=== PATIENT | female | born 2000 | race Caucasian/White ===

== ENCOUNTER 2022-02-26 17:03 | Emergency (ER) | payer OTHER ==
[~2022-02-26] VITALS: Ht 162.6 cm; Wt 88.6 kg
[2022-02-26 17:04] VITALS: BP 144/81
[2022-02-26 20:12] LABS: BASO % 0.5 % (0.0-1.0); EOS # 0.1 10^3/uL (0.0-0.5); EOS % 1.7 % (0.0-3.0); HEMATOCRIT 39.9 % (36.0-47.0); HEMOGLOBIN 13.3 g/dl (12.0-15.5); LYMPH # 2.3 10^3/uL (1.5-5.0); LYMPH % 28.3 % (24.0-44.0); MEAN CORPUSCULAR HEMOGLOBIN 31.7 pg (27.0-33.0); MEAN CORPUSCULAR HGB CONC 33.3 g/dl (32.0-36.5); MEAN CORPUSCULAR VOLUME 95.2 fl (80.0-96.0); MONO # 0.6 10^3/uL (0.0-0.8); MONO % 7.4 % (2.0-8.0); NEUTROPHILS % 61.9 % (36.0-66.0); PLATELET COUNT, AUTOMATED 336 10^3/uL (150-450); RED BLOOD COUNT 4.19 10^6/uL (4.00-5.40); WHITE BLOOD COUNT 8.1 10^3/uL (4.0-10.0)
[2022-02-26 20:35] LABS: LIPASE 38 U/L (12-53)
[2022-02-26 20:36] LABS: AMYLASE 75 U/L (30-118)
[2022-02-26 20:37] LABS: BILIRUBIN,DIRECT < 0.1 MG/DL (<0.4)
[2022-02-26 20:40] LABS: HCG, SERUM QUALITATIVE NEGATIVE (NEGATIVE)
[2022-02-26 20:41] LABS: ALBUMIN 3.7 G/DL (3.2-5.2); ALKALINE PHOSPHATASE 57 U/L (46-116); ALT/SGPT 21 U/L (7.0-40); AST/SGOT 33 U/L (<34); BILIRUBIN,TOTAL 0.4 MG/DL (0.3-1.2); BLOOD UREA NITROGEN 12 MG/DL (9-23); CALCIUM LEVEL 9.9 MG/DL (8.5-10.1); CARBON DIOXIDE LEVEL 24 MMOL/L (20-31); CHLORIDE LEVEL 106 MMOL/L (98-107); CREATININE FOR GFR 0.81 MG/DL (0.55-1.30); GLOMERULAR FILTRATION RATE > 60.0 (>60); GLUCOSE, FASTING 87 MG/DL (60-100); POTASSIUM SERUM 4.8 MMOL/L (3.5-5.1); SODIUM LEVEL 140 MMOL/L (136-145); TOTAL PROTEIN 7.5 G/DL (5.7-8.2)
[2022-02-26] MEDS ORDERED: ISOVUE-370 76% 100ML VIAL As Ordered ONE (21:03)
== END 2022-02-26 22:16 | disposition home or self-care (01) ==
LOC: M ED 17:03
DX: M54.50 Low back pain, unspecified (principal); N89.8 Other specified noninflammatory disorders of vagina; F17.290 Nicotine dependence, other tobacco product, uncomplicated; Z82.49 Family history of ischemic heart disease and other diseases of the circulatory system

== ENCOUNTER 2022-04-04 20:10 | Emergency (ER) | payer OTHER ==
[~2022-04-04] VITALS: Ht 162.6 cm; Wt 89.2 kg
[2022-04-04 20:12] VITALS: BP 138/78
== END 2022-04-05 01:34 | disposition left against medical advice (07) ==
LOC: M ED 20:10
DX: Z53.21 Procedure and treatment not carried out due to patient leaving prior to being seen by health care provider (principal)

== ENCOUNTER → 2022-04-19 | Outpatient (CLI) | payer OTHER, MEDICAID ==
[2022-04-19 13:56] LABS: HEMATOCRIT 37.6 % (36.0-47.0); HEMOGLOBIN 12.4 g/dl (12.0-15.5); MEAN CORPUSCULAR VOLUME 97.2 fl (80.0-96.0); PLATELET COUNT, AUTOMATED 284 10^3/uL (150-450); RED BLOOD COUNT 3.87 10^6/uL (4.00-5.40); WHITE BLOOD COUNT 7.9 10^3/uL (4.0-10.0)
[2022-04-19 14:49] LABS: HIV 1&2 SCREEN CENTAUR NEGATIVE (NEGATIVE)
[2022-04-19 14:57] LABS: HEPATITIS C VIRUS ABY INDEX 0.1 INDEX (<0.8)
[2022-04-19 15:51] LABS: GC DNA AMPLIFICATION NEGATIVE (NEGATIVE)
== END ==
LOC: M PLALAB 08:34
PROVIDERS: ATTEND Advanced Practice Midwife
DX: Z36.9 Encounter for antenatal screening, unspecified (principal)

== ENCOUNTER → 2022-05-23 | Outpatient (CLI) | payer OTHER | LOC: M PLALAB 10:33 | PROVIDERS: ATTEND Advanced Practice Midwife | DX: Z34.80 Encounter for supervision of other normal pregnancy, unspecified trimester (principal) ==

== ENCOUNTER → 2022-07-22 | Outpatient (CLI) | payer MEDICARE, OTHER | LOC: M WHC 09:17 | PROVIDERS: ATTEND Obstetrics & Gynecology | DX: Z34.92 Encounter for supervision of normal pregnancy, unspecified, second trimester (principal); Z3A.20 20 weeks gestation of pregnancy ==

== ENCOUNTER → 2022-08-23 | Outpatient (CLI) | payer OTHER ==
[2022-08-23 15:15] LABS: HEMATOCRIT 34.9 % (36.0-47.0); HEMOGLOBIN 11.6 g/dl (12.0-15.5); MEAN CORPUSCULAR HEMOGLOBIN 33.1 pg (27.0-33.0); MEAN CORPUSCULAR HGB CONC 33.2 g/dl (32.0-36.5); MEAN CORPUSCULAR VOLUME 99.7 fl (80.0-96.0); PLATELET COUNT, AUTOMATED 260 10^3/uL (150-450); WHITE BLOOD COUNT 12.7 10^3/uL (4.0-10.0)
[2022-08-23 16:49] LABS: GC DNA AMPLIFICATION NEGATIVE (NEGATIVE)
== END ==
LOC: M PLALAB 09:26
PROVIDERS: ATTEND Advanced Practice Midwife
DX: Z34.02 Encounter for supervision of normal first pregnancy, second trimester (principal)
CPT/HCPCS: 36415; 82950; 85027; 86850; 86900; 86901; 87810; 87850; J2790

== ENCOUNTER → 2022-09-04 | Outpatient (CLI) | payer OTHER | LOC: M RAD 07:00 | PROVIDERS: ATTEND Advanced Practice Midwife | DX: Z34.02 Encounter for supervision of normal first pregnancy, second trimester (principal) ==

== ENCOUNTER 2022-09-18 13:43 | Outpatient (CLI) | payer OTHER ==
[~2022-09-18] VITALS: Ht 162.6 cm; Wt 102.0 kg
[2022-09-18] MEDS ORDERED: PRENTAB9 PO (13:59)
== END 2022-09-18 15:20 | disposition home or self-care (01) ==
LOC: M LDO 13:43
PROVIDERS: ATTEND Advanced Practice Midwife
DX: O26.892 Other specified pregnancy related conditions, second trimester (principal); R10.30 Lower abdominal pain, unspecified; R10.2 Pelvic and perineal pain; O21.8 Other vomiting complicating pregnancy; Z3A.29 29 weeks gestation of pregnancy
CPT/HCPCS: 59025; G0463

== ENCOUNTER → 2022-11-06 | Outpatient (REF) | payer OTHER ==
[~2022-11-06] MED LIST: PRENTAB9 PO
== END ==
LOC: M SFHCWAGY 16:54
PROVIDERS: ATTEND Obstetrics & Gynecology
DX: R82.90 Unspecified abnormal findings in urine (principal)

== ENCOUNTER 2022-11-13 11:35 | Outpatient (CLI) | payer OTHER ==
[~2022-11-13] VITALS: Ht 162.6 cm; Wt 112.0 kg
[2022-11-13] MEDS ORDERED: ACET-897 PO (11:46)
[2022-11-13] MEDS ORDERED: TUMS750C5 PO (11:46)
[2022-11-13 11:48] VITALS: BP 135/81
[2022-11-13] MEDS ORDERED: LACTATED RINGER'S 1000 ML IV ONE (12:00)
[2022-11-13] MEDS ORDERED: ONDANSETRON 4MG 2ML VIAL IV ONE (12:00)
[2022-11-13] MEDS ORDERED: HOME MED LIST COMPLETE! XX SCH (12:20)
[2022-11-13 13:00] LABS: APPEARANCE, URINE HAZY (CLEAR); BACTERIA, URINE AUTO 1+ (NEGATIVE); BILIRUBIN, URINE AUTO NEGATIVE (NEGATIVE); BLOOD, URINE BLOOD NEGATIVE (NEGATIVE); COLOR, URINE STRAW (YELLOW); GLUCOSE, URINE (UA) AUTO NEGATIVE (NEGATIVE); KETONE, URINE AUTO NEGATIVE (NEGATIVE); LEUKOCYTE ESTERASE, URINE AUTO NEGATIVE (NEGATIVE); NITRITE, URINE AUTO NEGATIVE (NEGATIVE); PROTEIN, URINE AUTO NEGATIVE (NEGATIVE); RBC, URINE AUTO 1 /HPF (0-3); SPECIFIC GRAVITY URINE AUTO 1.003 (1.002-1.035); SQUAMOUS EPITHELIAL CELL UR AU 4 /HPF (0-6); UROBILINOGEN, URINE AUTO 0.2 mg/dL (0.0-2.0); WBC, URINE AUTO 1 /HPF (0-3)
[2022-11-13 13:36] VITALS: BP 122/72
[2022-11-13] MEDS ORDERED: ONDA4TAB6 PO (14:57)
== END 2022-11-13 15:00 | disposition home or self-care (01) ==
LOC: M LDO 11:35
PROVIDERS: ATTEND Advanced Practice Midwife
DX: O36.8130 Decreased fetal movements, third trimester, not applicable or unspecified (principal); O21.8 Other vomiting complicating pregnancy; Z91.013 Allergy to seafood; Z3A.37 37 weeks gestation of pregnancy
CPT/HCPCS: 59025; 81001; G0463; J2405

== ENCOUNTER 2023-01-29 14:02 | Emergency (ER) | payer OTHER, MEDICAID ==
[~2023-01-29] VITALS: Ht 162.6 cm; Wt 97.7 kg
[~2023-01-29 14:02] MED LIST changes: +ACET-897 PO; +AMOX875T PO; +ONDA4TAB6 PO; +TUMS750C5 PO
[2023-01-29 14:06] VITALS: BP 120/57; TEMP 97.4; O2SAT 98
== END 2023-01-29 16:20 | disposition left against medical advice (07) ==
LOC: M ED 14:02
DX: Z53.21 Procedure and treatment not carried out due to patient leaving prior to being seen by health care provider (principal)

== ENCOUNTER → 2023-06-16 | Outpatient (REF) | payer MEDICARE, MEDICAID | LOC: M PLALAB 14:51 | PROVIDERS: ATTEND Advanced Practice Midwife | DX: Z12.4 Encounter for screening for malignant neoplasm of cervix (principal) ==

== ENCOUNTER → 2024-10-26 | Outpatient (REF) | payer BC ==
[~2024-10-26] MED LIST changes: +ONDA-282 PO; -ONDA4TAB6 PO
[2024-10-28 14:19] LABS: HPV APTIMA Not Detected (Not Detected)
== END ==
LOC: M SFHCWAGY 15:23
PROVIDERS: ATTEND Advanced Practice Midwife
DX: Z12.4 Encounter for screening for malignant neoplasm of cervix (principal); R87.610 Atypical squamous cells of undetermined significance on cytologic smear of cervix (ASC-US)
CPT/HCPCS: 87624; G0123

== ENCOUNTER → 2024-10-27 | Outpatient (CLI) | payer BC ==
[2024-10-27 10:53] LABS: PROLACTIN 7.98 NG/ML
[2024-10-27 10:54] LABS: FREE T4 1.12 NG/DL (0.89-1.76)
[2024-10-28 08:48] LABS: DEHYDROEPIANDROSTERONE SULFATE 177.0 mcg/dL (14-349)
[2024-10-29 11:48] LABS: INSULIN LEVEL 12.5 uIU/mL (<=18.4)
[2024-11-01 18:08] LABS: TESTOSTERONE FREE (DIRECT) 4.2 pg/mL (0.1-6.4); TESTOSTERONE TOTAL FOR T&D 29.0 ng/dL (2-45)
== END ==
LOC: M PLALAB 08:13
PROVIDERS: ATTEND Advanced Practice Midwife
DX: L68.0 Hirsutism (principal)

== ENCOUNTER 2025-01-01 20:29 | Emergency (ER) | payer BC ==
[~2025-01-01] VITALS: Ht 162.6 cm; Wt 96.7 kg
[2025-01-01 20:34] VITALS: TEMP 98.3
[2025-01-01] MEDS: NS (Normal Saline) 0.9% 1,000 ML IV ONE (21:51)
[2025-01-01] MEDS: ONDANSETRON 4MG 2ML VIAL IV ONE (21:51)
[2025-01-01 23:15] VITALS: BP 110/68; O2SAT 100
== END 2025-01-01 23:28 | disposition home or self-care (01) ==
LOC: M ED 20:29
DX: B08.4 Enteroviral vesicular stomatitis with exanthem (principal); F41.0 Panic disorder [episodic paroxysmal anxiety]; Z91.030 Bee allergy status; Z91.013 Allergy to seafood
CPT/HCPCS: 96361; 96374; 99284; J2405

== ENCOUNTER 2025-02-22 07:43 | Emergency (ER) | payer BC ==
[~2025-02-22] VITALS: Ht 162.6 cm; Wt 98.2 kg
[2025-02-22] MEDS ORDERED: IBUP600T42 PO (10:02)
[2025-02-22] MEDS: ACETAMINOPHEN 500 MG TAB PO ONE (11:13)
[2025-02-22] MEDS: KETOROLAC 60 MG/2 ML VIAL IM ONE (11:13)
[2025-02-22 11:33] LABS: BASO # 0.1 10^3/uL (0.0-0.2); BASO % 0.7 % (0.0-1.0); EOS # 0.1 10^3/uL (0.0-0.5); EOS % 1.2 % (0.0-3.0); LYMPH # 2.0 10^3/uL (1.5-5.0); LYMPH % 28.9 % (24.0-44.0); MONO # 0.6 10^3/uL (0.0-0.8); MONO % 8.6 % (2.0-8.0); NEUTROPHILS # 4.2 10^3/uL (1.5-8.5); NEUTROPHILS % 60.3 % (36.0-66.0); PLATELET COUNT, AUTOMATED 295 10^3/uL (150-450)
[2025-02-22 11:49] LABS: C REACTIVE PROTEIN QUANTITATIV < 0.50 MG/DL (<1.0); CALCIUM LEVEL 9.3 MG/DL (8.5-10.1); CARBON DIOXIDE LEVEL 26 MMOL/L (20-31); CHLORIDE LEVEL 105 MMOL/L (98-107); CREATININE FOR GFR 0.72 MG/DL (0.55-1.30); GLOMERULAR FILTRATION RATE > 90.0 (>60); POTASSIUM SERUM 4.0 MMOL/L (3.5-5.1); SODIUM LEVEL 138 MMOL/L (136-145)
[2025-02-22] MEDS ORDERED: LIDO1ADH93 TD (12:19)
[2025-02-22] MEDS: LIDOCAINE 5% PATCH TD ONE (12:23)
[2025-02-22 12:25] VITALS: BP 123/66; TEMP 98.3; O2SAT 100
== END 2025-02-22 12:31 | disposition home or self-care (01) ==
LOC: M ED 07:43
DX: M51.26 Other intervertebral disc displacement, lumbar region (principal); G47.30 Sleep apnea, unspecified; Z87.440 Personal history of urinary (tract) infections; F32.A Depression, unspecified; Z91.030 Bee allergy status; Z91.013 Allergy to seafood
CPT/HCPCS: 36415; 72125; 72128; 72131; 80048; 84145; 84550; 85025; 85652; 86140; 96372; 99284; J1885